=== PATIENT | female | born 1940 | race Caucasian/White ===

== ENCOUNTER → 2019-03-14 | Outpatient (CLI) | payer MEDICARE, BC, SELFPAY | PROVIDERS: Family Provider Nurse Practitioner Family; Visit Provider Internal Medicine Medical Oncology | DX: C18.3 Malignant neoplasm of hepatic flexure (principal); K44.9 Diaphragmatic hernia without obstruction or gangrene; K76.0 Fatty (change of) liver, not elsewhere classified; K57.30 Diverticulosis of large intestine without perforation or abscess without bleeding; Z90.49 Acquired absence of other specified parts of digestive tract; Z98.0 Intestinal bypass and anastomosis status | CPT/HCPCS: 71260; 74177; 80053; 82378; 85025; Q9967 ×2 ==

== ENCOUNTER → 2019-03-17 | Outpatient (CLI) | payer MEDICARE, BC, SELFPAY | PROVIDERS: Family Provider Nurse Practitioner Family; Visit Provider Internal Medicine Medical Oncology | DX: Z08 Encounter for follow-up examination after completed treatment for malignant neoplasm (principal); Z85.038 Personal history of other malignant neoplasm of large intestine; I10 Essential (primary) hypertension; Z92.21 Personal history of antineoplastic chemotherapy; Z90.49 Acquired absence of other specified parts of digestive tract | CPT/HCPCS: 99213 ==

== ENCOUNTER 2019-09-03 12:05 | Outpatient (CLI) | payer MEDICARE, BC, SELFPAY ==
[2019-09-03 12:32] LABS: Basophils # 0.1 10^3/uL (0.0-0.1); Basophils % 0.6 %; Eosinophils # 0.3 10^3/uL (0.0-0.8); Eosinophils % 3.7 %; Hematocrit 42.6 % (37.0-47.0); Hemoglobin 13.8 g/dL (11.5-15.3); Lymphocytes # 2.1 10^3/uL (0.8-4.8); Lymphocytes % 26.6 %; Mean Corpuscular HGB Conc 32.4 g/dL (30.0-36.0); Mean Corpuscular Hemoglobin 28.6 pg (28.0-34.0); Mean Corpuscular Volume 88.4 fL (81-99); Mean Platelet Volume 9.5 fL (7.4-10.4); Monocytes # 0.6 10^3/uL (0.2-0.9); Monocytes % 7.2 %; Neutrophils # 4.9 10^3/uL (1.8-7.7); Neutrophils % 61.5 %; Nucleated Red Blood Cells % 0 %; Platelet Count 286 10^3/cmm (130-400); Red Blood Count 4.82 10^6/uL (4.1-5.3); Red Cell Distribution Width 13.2 % (12.1-15.1); White Blood Count 7.9 10^3/uL (4.0-10.0)
[2019-09-03 12:52] LABS: Carcinoembryonic Antigen 4.7 ng/mL (0.0-4.7)
[2019-09-03 13:05] LABS: Alanine Aminotransferase 21 U/L (0-33); Albumin Level 4.7 g/dL (3.5-5.2); Alkaline Phosphatase 59 IU/L (35-105); Anion Gap 19.2 (5-19); Aspartate Amino Transferase 20 U/L (0-32); Blood Urea Nitrogen 15 mg/dL (8-23); Calcium 10.1 mg/dL (8.5-10.5); Carbon Dioxide 24 mmol/L (22-29); Chloride 95 mmol/L (98-107); Globulin 3.1 g/dL (1.3-4.6); Glucose 103 mg/dL (65-115); Osmolality Calculated 275 mOsm/kg (285-295); Potassium 4.2 mmol/L (3.5-5.1); Sodium 134 mmol/L (136-145); Total Bilirubin 0.3 mg/dL (0.15-1.2); Total Protein 7.8 g/dL (6.6-8.7)
--- NOTE | 2019-09-07 14:12 | ONC FU_ITS ---
Dr. Bullock Patient Follow-Up Note Patient: Federica Noguera Unit #: [id number]: 1940 Dicatated By: Christiano Bullock M.D.Date of Visit:Sep 03, 2019 Onc Med Follow-up/Prog Note Chief Complaint: Colon cancer. 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 She had presented with a 6-month history of progressive weakness/fatigue, anorexia, and weight loss. She eventually was seen by Vero Busby, and her CBC at that point showed a hemoglobin of only 3.2 g with white blood cell count 20,300 and platelet count 733,000. The red cell indices were hypochromic/microcytic. CT abdomen/pelvis showed a large mass at the hepatic flexure of the colon with high-grade obstruction. There was evidence of extensive pericolonic stranding as well as prominent lymph nodes within the mesentery. There was no other obvious metastatic involvement. She was admitted to the hospital and transfused a total of 5 U of packed red blood cells. On 09/15/2015 she underwent laparoscopic extended right hemicolectomy. She was noted to have a large mass involving the hepatic flexure and proximal transverse colon. The tumor appeared to be adherent posteriorly, and the resection included a portion of Gerotia's fascia. Pathology showed grade 2/4 invasive adenocarcinoma measuring 8.0 x 7.5 x 4.0 cm. Tumor was noted to infiltrate deep into the bowel wall and surrounding pericolonic connective tissues. It extended to the radial margin of resection (visceral peritoneal surface). The portion of the Gerotia's fascia did show evidence of infiltrating adenocarcinoma with extensive acute and chronic inflammation. There was no involvement in 13 lymph nodes. The tumor was found to be MMR proficient. I had seen her initially on 10/19/2015. Given the fact that she had a T4 primary tumor, she did opt to undergo adjuvant chemotherapy with Xeloda. She started her first cycle of Xeloda on 11/09/15 and stopped early on 11/19/15 due to stomach cramps and persistent diarrhea. The diarrhea lasted for seven days. She also experienced skin peeling on the palms of her hands and soles of her feet, and her mouth got sore. Her symptoms gradually resolved. She opted to stop her treatment. She was then followed on observation/expectant management. Her surveillance CT scans in July 2016 showed no evidence of recurrent or metastatic disease, and her surveillance colonoscopy on 08/29/2016 showed evidence of severe diverticulosis, but no other abnormal findings. A 3-year follow-up colonoscopy was recommended. Her medical illnesses, in addition to the colon cancer, have been limited to hypertension and the iron deficiency anemia. She is a nonsmoker. INTERIM HISTORY: Surveillance CT scans in August 2017 showed no evidence of disease progression in the chest. There was a wedge-shaped non-masslike area of relative hyperattenuation in the right posterior hepatic lobe measuring 2.4 x 1.0 cm. The remainder of the liver appeared unremarkable. A follow-up study was recommended. Repeat CT abdomen/pelvis on 06/24/2018 showed no evidence for recurrent colonic neoplasm or obstruction. The wedge-shaped area of increased attenuation in the right hepatic lobe was noted to have decreased. She continued on observation/expectant management. Surveillance CT scans on 03/14/2019 showed no evidence of a neoplastic process in the chest, abdomen, or pelvis. She is seen for a scheduled visit. She has been feeling good generally. She has good energy and she has normal activity. ECOG score is 0. Her appetite is good. Her weight is up a couple of pounds. She has no fever or night sweats. She has no shortness of breath, cough, or chest pain. She has occasional nausea and she occasionally has acid reflux. Bowel and bladder function have been okay. She has some lower back pain. She has no focal neurologic symptoms. Medications: Aspirin Low Dose 1 Tablet (of 81 mg) Oral daily, Lisinopril 1 Tablet (of 2.5 mg) Oral daily, [place]-3 1 Capsule (of 1000 mg) Oral daily, 1 Tablet Oral daily, Vitamin D3 2 Tablet (of 1000 ) Capsule Oral daily Allergies: No Known Allergies. Review of Systems: Constitutional - She has good energy, and she has normal activity. Her appetite is good. She has gained a couple of pounds. No fever, night sweats, or hot flashes. ECOG score is 0, ENMT - She has allergy related symptoms, including watery eyes and sinus drainage. No mouth sores. No sore throat or difficulty swallowing, Hematologic/Lymphatic - No abnormal bruising or bleeding, Respiratory - No shortness of breath. No cough. No pleuritic pain or hemoptysis, Cardiovascular - No angina pain. No palpitations, Gastrointestinal - She occasionally has a little nausea and she has occasional acid reflux. No diarrhea or constipation. No blood in the stool or black stools, Genitourinary (F) - No dysuria or hematuria. No urinary frequency. No urgency or incontinence, Musculoskeletal - She has lower back pain. She has no other joint or bone pain, Integumentary - , Neurologic - No headache or dizziness. No numbness or tingling. No other focal neurologic symptoms, Psychiatric - No anxiety or depression. She still does not sleep very well. Vital Signs: Performed on Sep 03, 2019 13:38 Height - 63.50 in Weight - 124.2 lbs (HIGH) BSA - 1.59 sq.m BMI - 21.66 Temperature - 97.1 F (LOW) Pulse - 69 /min Respiration - 18 /min BP - 167/74 mm(hg) (HIGH) O2 Sat - 95 % (LOW) Pain - 0 Physical Examination: Constitutional - She looks good generally, Eyes - Sclerae nonicteric. Conjunctivae clear, ENMT - No lesions noted in the oral cavity, Hematologic/Lymphatic - No cervical, clavicular, or axillary adenopathy, Respiratory - Lungs are clear with good air movement bilaterally, Cardiovascular - Heart rhythm is regular. There is no murmur, gallop, or rub noted, Abdomen - Soft. Liver and spleen are not enlarged. There is no abdominal mass or ascites noted and there is no inguinal adenopathy, Extremities - No edema, Neurologic - No focal neurologic deficits noted. Lab/Imaging: Test performed on Sep 03, 2019 12:18 Sodium 134 mmol/L Potassium 4.2 mmol/L Chloride 95 mmol/L CO2 24 mmol/L Anion Gap 19.2 BUN 15 mg/dL Creatinine 0.9 mg/dL Cr Clearance (Est) 45.82 mL/min Glucose 103 mg/dL Calcium 10.1 mg/dL Protein, Total 7.8 g/dL Albumin 4.7 g/dL Globulin 3.1 g/dL Bilirubin, Total 0.3 mg/dL ALT (SGPT) 21 U/L AST (SGOT) 20 U/L Alkaline Phosphatase 59 IU/L WBC 7.9 10 3/uL RBC 4.82 10 6/uL HGB 13.8 g/dL HCT 42.6 % MCV 88.4 fL MCH 28.6 pg MCHC 32.4 g/dL RDW 13.2 % Platelet Count 286 10 3/cmm MPV 9.5 fL Neutrophils 4.9 10 3/uL Lymphocytes 2.1 10 3/uL Monocytes 0.6 10 3/uL Eosinophils 0.3 10 3/uL Basophils 0.1 10 3/uL Neutrophil % 61.5 % Lymphocyte % 26.6 % Monocyte % 7.2 % Eosinophil % 3.7 % Basophils % 0.6 % NRBC % 0 % CEA 4.7 ng/mL Impression: 1. 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 2. She underwent laparoscopic extended right hemicolectomy on 09/15/2015. 3. She had iron deficiency anemia, presumed to be due to occult GI blood loss. 4. Hypertension. She began adjuvant chemotherapy with Xeloda in October 2015. She developed multiple toxicities during her first cycle. She did have a good recovery, but she opted not to attempt any further treatment. She was then followed on observation/expected management. Her surveillance CT scan in November 2017 had shown a nonspecific abnormality in the liver, and at that point her CEA level had increased slightly. However, she appeared stable clinically, and she continued on observation/expectant management. A repeat CT abdomen/pelvis in June 2018 showed decrease in the size of the wedge-shaped area of increased attenuation in the right hepatic lobe. Her restaging CT scans in February 2019 again showed no evidence of a neoplastic process in the chest, abdomen, or pelvis. During follow-up her CEA level has remained borderline high, but stable. Overall, she is doing well clinically with no evidence of recurrence of the colon cancer. Plan: She continues on observation/expectant management for the colon cancer. She will be scheduled for follow-up visit in 6 months. Signed By: Christiano Bullock M.D. <<Signature on File>>
== END 2019-09-03 12:06 | disposition home or self-care (01) ==
PROVIDERS: PCP Nurse Practitioner Family; Visit Provider Internal Medicine Medical Oncology
DX: Z08 Encounter for follow-up examination after completed treatment for malignant neoplasm (principal); Z85.038 Personal history of other malignant neoplasm of large intestine; Z92.21 Personal history of antineoplastic chemotherapy; I10 Essential (primary) hypertension; Z90.49 Acquired absence of other specified parts of digestive tract
CPT/HCPCS: 36415; 80053; 82378; 85025; G0463

== ENCOUNTER 2020-03-02 08:48 | Outpatient (CLI) | payer MEDICARE, BC, SELFPAY ==
--- NOTE | 2020-03-02 08:51 | CT_ITS ---
WS: [id number] CT CHEST, ABDOMEN, AND PELVIS TECHNIQUE: Contrast-enhanced CT of the chest, abdomen, and pelvis with coronal and sagittal reformatt ed images. CLINICAL INFORMATION: COLON CANCER COMPARISON: CT March 14, 2019 DLP: 948.[address] scans at [facility] use at least one of these dose optimization techniques: automat ed exposure control; mA and/or kV adjustment per patient size (includes targeted exams where dose is matched to clinical indication); or iterative reconstruction. CT CHEST: Mild chronic emphysematous changes. Calcified granulomas. Atelectasis and fibrosis in the right middl e lobe. 2 tiny noncalcified nodules in right lower lobe unchanged since 2017 and of doubtful clinical significance measuring 2 to 3 mm. These No other suspicious pulmonary parenchymal opacities. Normal caliber thoracic aorta. No mediastinal or hilar lymphadenopathy. No axillary lymphadenopathy. Mild thoracic kyphosis. CT ABDOMEN AND PELVIS: Prior postoperative changes right hemicolectomy with ileocolic anastomosis. Diffuse fatty infiltratio n of the liver. Mild hepatomegaly. Normal spleen. Normal pancreas. Adrenal glands are normal. Normal renal parenchymal enhancement. Small bilateral renal cysts. No hydronephrosis. Normal caliber abdomin al aorta. Aortic calcification. Extensive sigmoid diverticulosis. No evidence of acute diverticulitis . Tiny fat-containing umbilical hernia. No free fluid in the pelvis. No periaortic or retroperitoneal lymphadenopathy. Moderate spondylitic changes lumbar spine. CT/CT chest abd pel w con* IMPRESSION: 1. No evidence of metastatic or progressed disease in the chest abdomen or pel vis. 2. Diffuse fatty infiltration of the liver. 3. No adenopathy in the chest abdomen or pelvis. 4. Prior right hemicolectomy with ileocolic anastomosis. 5. Sigmoid diverticulosis.
[2020-03-02 09:26] LABS: Basophils # 0.1 10^3/uL (0.0-0.1); Basophils % 1.1 %; Eosinophils # 0.2 10^3/uL (0.0-0.8); Eosinophils % 3.8 %; Hematocrit 47.3 % (37.0-47.0); Hemoglobin 14.9 g/dL (11.5-15.3); Lymphocytes # 1.9 10^3/uL (0.8-4.8); Lymphocytes % 29.7 %; Mean Corpuscular HGB Conc 31.5 g/dL (30.0-36.0); Mean Corpuscular Hemoglobin 29.3 pg (28.0-34.0); Mean Corpuscular Volume 93.1 fL (81-99); Mean Platelet Volume 9.9 fL (7.4-10.4); Monocytes # 0.5 10^3/uL (0.2-0.9); Neutrophils # 3.71 10^3/uL (1.8-7.7); Neutrophils % 58.1 %; Nucleated Red Blood Cells % 0 %; Platelet Count 299 10^3/cmm (130-400); Red Blood Count 5.08 10^6/uL (4.1-5.3); Red Cell Distribution Width 12.5 % (12.1-15.1); White Blood Count 6.4 10^3/uL (4.0-10.0)
[2020-03-02 09:36] LABS: Alanine Aminotransferase 27 U/L (0-33); Albumin Level 4.9 g/dL (3.5-5.2); Alkaline Phosphatase 62 IU/L (35-105); Anion Gap 13.6 (5-19); Aspartate Amino Transferase 19 U/L (0-32); Blood Urea Nitrogen 13 mg/dL (8-23); Carbon Dioxide 30 mmol/L (22-29); Chloride 99 mmol/L (98-107); Globulin 2.9 g/dL (1.3-4.6); Glucose 100 mg/dL (65-115); Osmolality Calculated 286 mOsm/kg (285-295); Potassium 4.6 mmol/L (3.5-5.1); Sodium 138 mmol/L (136-145); Total Bilirubin 0.5 mg/dL (0.15-1.2); Total Protein 7.8 g/dL (6.6-8.7)
[2020-03-02] MEDS: iohexol 300 mg/mL 100 mL Btl IV (10:23)
[2020-03-02] MEDS: iohexol 300 mg/mL 50 mL Btl PO (10:25)
== END 2020-03-02 08:49 | disposition home or self-care (01) ==
PROVIDERS: PCP Nurse Practitioner Family; Visit Provider Internal Medicine Medical Oncology
DX: C18.3 Malignant neoplasm of hepatic flexure (principal); K76.0 Fatty (change of) liver, not elsewhere classified; K57.30 Diverticulosis of large intestine without perforation or abscess without bleeding
CPT/HCPCS: 36415; 71260; 74177; 80053; 85025

== ENCOUNTER 2020-03-04 14:31 | Outpatient (CLI) | payer MEDICARE, BC, SELFPAY ==
[2020-03-04 18:43] LABS: Carcinoembryonic Antigen 6.2 ng/mL (0.0-4.7)
--- NOTE | 2020-03-05 08:56 | ONC FU_ITS ---
Dr. Bullock Patient Follow-Up Note Patient: Federica Noguera Unit #: [id number]: 1940 Dicatated By: Christiano Bullock M.D.Date of Visit:Mar 04, 2020 Onc Med Follow-up/Prog Note Chief Complaint: Colon cancer. 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 She had presented with a 6-month history of progressive weakness/fatigue, anorexia, and weight loss. She eventually was seen by Vero Busby, and her CBC at that point showed a hemoglobin of only 3.2 g with white blood cell count 20,300 and platelet count 733,000. The red cell indices were hypochromic/microcytic. CT abdomen/pelvis showed a large mass at the hepatic flexure of the colon with high-grade obstruction. There was evidence of extensive pericolonic stranding as well as prominent lymph nodes within the mesentery. There was no other obvious metastatic involvement. She was admitted to the hospital and transfused a total of 5 U of packed red blood cells. On 09/15/2015 she underwent laparoscopic extended right hemicolectomy. She was noted to have a large mass involving the hepatic flexure and proximal transverse colon. The tumor appeared to be adherent posteriorly, and the resection included a portion of Gerotia's fascia. Pathology showed grade 2/4 invasive adenocarcinoma measuring 8.0 x 7.5 x 4.0 cm. Tumor was noted to infiltrate deep into the bowel wall and surrounding pericolonic connective tissues. It extended to the radial margin of resection (visceral peritoneal surface). The portion of the Gerotia's fascia did show evidence of infiltrating adenocarcinoma with extensive acute and chronic inflammation. There was no involvement in 13 lymph nodes. The tumor was found to be MMR proficient. I had seen her initially on 10/19/2015. Given the fact that she had a T4 primary tumor, she did opt to undergo adjuvant chemotherapy with Xeloda. She started her first cycle of Xeloda on 11/09/15 and stopped early on 11/19/15 due to stomach cramps and persistent diarrhea. The diarrhea lasted for seven days. She also experienced skin peeling on the palms of her hands and soles of her feet, and her mouth got sore. Her symptoms gradually resolved. She opted to stop her treatment. She was then followed on observation/expectant management. Her surveillance CT scans in July 2016 showed no evidence of recurrent or metastatic disease, and her surveillance colonoscopy on 08/29/2016 showed evidence of severe diverticulosis, but no other abnormal findings. A 3-year follow-up colonoscopy was recommended. Her medical illnesses, in addition to the colon cancer, have been limited to hypertension and the iron deficiency anemia. She is a nonsmoker. INTERIM HISTORY: Surveillance CT scans in August 2017 showed no evidence of disease progression in the chest. There was a wedge-shaped non-masslike area of relative hyperattenuation in the right posterior hepatic lobe measuring 2.4 x 1.0 cm. The remainder of the liver appeared unremarkable. A follow-up study was recommended. Repeat CT abdomen/pelvis on 06/24/2018 showed no evidence for recurrent colonic neoplasm or obstruction. The wedge-shaped area of increased attenuation in the right hepatic lobe was noted to have decreased. She continued on observation/expectant management. Her surveillance CT scans on 03/14/2019 showed no evidence of a neoplastic process in the chest, abdomen, or pelvis. Surveillance CT scans of the chest, abdomen, and pelvis on 03/02/2020 showed no evidence of recurrent or metastatic disease. She is seen for a scheduled visit. She has been feeling good generally. She has good energy and activity tolerance. She is still working 4 hours a day. ECOG score is 0. Her appetite is good. She has no fever or night sweats. She has no shortness of breath, cough, or chest pain. She has no GI or complaints. She has no significant joint or bone pain. She is still walking. Jeremiah has no focal neurologic symptoms. Medications: Aspirin Low Dose 1 Tablet (of 81 mg) Oral daily, Lisinopril 1 Tablet (of 2.5 mg) Oral daily, [place]-3 1 Capsule (of 1000 mg) Oral daily, 1 Tablet Oral daily, Vitamin D3 2 Tablet (of 1000 ) Capsule Oral daily Allergies: No Known Allergies. Review of Systems: Constitutional - She has good energy. She still working 4 hours a day. Appetite is good and weight is stable. No fever, night sweats, or hot flashes. ECOG score is 0, ENMT - No sinus congestion/drainage. No mouth sores. No sore throat or difficulty swallowing, Hematologic/Lymphatic - No abnormal bruising or bleeding, Respiratory - No shortness of breath. No cough. No pleuritic pain or hemoptysis, Cardiovascular - No angina pain. No palpitations, Gastrointestinal - No nausea or vomiting. No heartburn or acid reflux. No diarrhea or constipation. No blood in the stool or black stools, Genitourinary (F) - No dysuria or hematuria. No urinary frequency. No urgency or incontinence, Musculoskeletal - No significant joint or bone pain, Integumentary - No skin rash, Neurologic - No headache or dizziness. No numbness or tingling. No other focal neurologic symptoms, Psychiatric - No anxiety or depression, but she has been under some stress because of her 's health. No insomnia. Vital Signs: Performed on Mar 04, 2020 15:10 Height - 63.50 in Weight - 124.8 lbs (HIGH) BSA - 1.59 sq.m BMI - 21.76 Temperature - 97.8 F (LOW) Pulse - 70 /min Respiration - 18 /min BP - 179/88 mm(hg) (HIGH) O2 Sat - 98 % Pain - 0 Physical Examination: Constitutional - She looks good generally, Eyes - Sclerae nonicteric. Conjunctivae clear, ENMT - No lesions noted in the oral cavity, Hematologic/Lymphatic - No cervical, clavicular, or axillary adenopathy, Respiratory - Lungs are clear with good air movement bilaterally, Cardiovascular - Heart rhythm is regular. There is no murmur, gallop, or rub noted, Abdomen - Soft. Liver and spleen are not enlarged. There is no abdominal mass or ascites noted and there is no inguinal adenopathy, Extremities - No edema, Neurologic - No focal neurologic deficits noted. Lab/Imaging: CBC shows hemoglobin 14.9 g, white blood cell count 6400, and platelet count 299,000. Comprehensive metabolic profile is unremarkable. The CEA is slightly elevated at 6.2 ng/mL. Impression: 1. 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 2. She underwent laparoscopic extended right hemicolectomy on 09/15/2015. 3. She had iron deficiency anemia, presumed to be due to occult GI blood loss. 4. Hypertension. She began adjuvant chemotherapy with Xeloda in October 2015. She developed multiple toxicities during her first cycle. She did have a good recovery, but she opted not to attempt any further treatment. She was then followed on observation/expected management. Her surveillance CT scan in November 2017 had shown a nonspecific abnormality in the liver, and at that point her CEA level had increased slightly. However, she appeared stable clinically, and she continued on observation/expectant management. A repeat CT abdomen/pelvis in June 2018 showed decrease in the size of the wedge-shaped area of increased attenuation in the right hepatic lobe. Her surveillance CT scans in February 2019 again showed no evidence of a neoplastic process in the chest, abdomen, or pelvis. During follow-up her CEA level has remained borderline high, but stable. Overall she has been doing well clinically and there has been no evidence of recurrence of the colon cancer on her surveillance CT scans. Plan: She continues on observation/expectant management for the colon cancer. She is now 4-1/2 years post surgery, she will now just continue regular follow-up with Vero Busyb. She should not require any further routine surveillance CT scans, but I would continue to check her CEA level at least every 6 to 12 months. I will plan to see her again only as needed. Signed By: Christiano Bullock M.D. <<Signature on File>>
== END 2020-03-04 14:32 | disposition home or self-care (01) ==
LOC: ONCMED 14:36
PROVIDERS: PCP Nurse Practitioner Family; Visit Provider Internal Medicine Medical Oncology
DX: Z08 Encounter for follow-up examination after completed treatment for malignant neoplasm (principal); Z85.038 Personal history of other malignant neoplasm of large intestine; Z90.49 Acquired absence of other specified parts of digestive tract; I10 Essential (primary) hypertension; Z92.21 Personal history of antineoplastic chemotherapy; Z86.2 Personal history of diseases of the blood and blood-forming organs and certain disorders involving the immune mechanism
CPT/HCPCS: 82378; G0463